=== PATIENT | female | born 1965 | race Caucasian/White ===

== ENCOUNTER 2016-05-18 12:30 | Outpatient (RCR) | payer OTHER | END 2016-06-12 | disposition home or self-care (01) | LOC: PTY 12:30 | DX: M25.552 Pain in left hip (principal); M25.512 Pain in left shoulder; M16.12 Unilateral primary osteoarthritis, left hip | CPT/HCPCS: 97035; 97110; 97140; 97162; G0283 ==

== ENCOUNTER 2016-06-26 14:00 | Outpatient (RCR) | payer OTHER | END 2016-07-12 | disposition home or self-care (01) | LOC: PTY 14:00 | DX: M25.552 Pain in left hip (principal); M25.512 Pain in left shoulder | CPT/HCPCS: 97035; 97110; G0283 ==

== ENCOUNTER 2016-07-06 10:30 | Outpatient (RCR) | payer OTHER | END 2016-07-12 | disposition home or self-care (01) | LOC: PTY 10:30 | DX: M25.551 Pain in right hip (principal); M25.552 Pain in left hip; M25.512 Pain in left shoulder | CPT/HCPCS: 97035; 97110; 97162; G0283 ==

== ENCOUNTER 2016-07-13 10:00 | Outpatient (RCR) | payer OTHER | END 2016-08-12 | disposition home or self-care (01) | LOC: PTY 10:00 | DX: M25.552 Pain in left hip (principal); M25.512 Pain in left shoulder | CPT/HCPCS: 97035; 97110; G0283 ==

== ENCOUNTER 2016-07-17 10:45 | Outpatient (RCR) | payer OTHER | END 2016-08-12 | disposition home or self-care (01) | LOC: PTY 10:45 | DX: M25.551 Pain in right hip (principal); M25.552 Pain in left hip; M25.512 Pain in left shoulder | CPT/HCPCS: 97035; 97110; G0283 ==